=== PATIENT | male | born 1955 | race Caucasian/White ===

== ENCOUNTER 2017-06-11 14:21 | Emergency (ER) | payer MEDICAID, SELFPAY ==
[~2017-06-11 14:21] MED LIST: ISOVUE-370 76%-LOCM 1 ML ONE
--- NOTE | 2017-06-11 15:11 | RAD ---
TWO VIEWS CHEST: Date: 06-11-17 Provided Clinical History: Cough. FINDINGS: Comparison 04-08-14 Cardiac and mediastinal silhouette are within normal limits. Bilateral nipple shadows are again seen. No focal consolidation, pleural fluid or pneumothorax apparent. IMPRESSION: No evidence for an acute cardiopulmonary process. POS: [facility]
[2017-06-11 15:12] LABS: #Basophils 0.1 thou/uL (0.0-0.2); #Eosinphils 0.2 thou/uL (0.0-0.7); #Lymphocytes 2.9 thou/uL (1.20-3.40); #Monocytes 0.6 thou/uL (0.11-0.59); #Neutrophils 3.9 thou/uL (1.40-6.50); %Basophils 0.7 % (0.0-1.0); %Eosinophils 2.6 % (0.0-10.0); %Lymphocytes 37.3 % (21.0-51.0); %Monocytes 8.3 % (0.0-10.0); Hemoglobin 17.5 g/dL (14.0-18.0); Mean Corpuscular HGB CONC 33.7 g/dL (32.0-36.0); Mean Corpuscular Hemoglobin 33.1 pg (27.0-31.0); Mean Corpuscular Volume 98.3 fl (80.0-94.0); Mean Platelet Volume 8.3 fL (7.4-10.4); Platelet Count 184 thou/uL (130-400); RBC Distribution Width 11.9 % (11.5-14.5); Red Blood Cell (RBC) Count 5.27 mill/uL (4.70-6.10); White Blood Cell (WBC) Count 7.7 thou/uL (4.8-10.8)
[2017-06-11 15:26] LABS: ALT (SGPT) 30 U/L (8-55); AST (SGOT) 19 U/L (5-34); Albumin 4.3 g/dL (3.5-5.0); Alkaline Phosphatase 58 U/L (40-150); Anion Gap 12 mmol/L (10-20); BUN (Urea Nitrogen) 12 mg/dL (8.4-25.7); Bilirubin, Total 0.5 mg/dL (0.2-1.2); Calc. Creatinine Clearance 0 mL/min (70-130); Calcium 9.7 mg/dL (7.8-10.44); Carbon Dioxide 28 mmol/L (22-29); Chloride 105 mmol/L (98-107); Estimated GFR-MDRD 90; Globulin 3.2 g/dL (2.4-3.5); Glucose 82 mg/dL (70-105); Potassium 4.2 mmol/L (3.5-5.1); Protein, Total 7.5 g/dL (6.0-8.3); Sodium 141 mmol/L (136-145)
[2017-06-11 17:48] LABS: Prothrombin Time 12.8 SEC (12.0-14.7)
[2017-06-11] MEDS ORDERED: Fentanyl 100 MCG/2 ML VIAL ONE (18:05)
[2017-06-11 18:06] LABS: CKMB 1.7 ng/mL (0-6.6); Troponin I Less than 0.010 ng/mL (< 0.028)
--- NOTE | 2017-06-11 20:09 | ULT ---
RIGHT UPPER QUADRANT ULTRASOUND 06/11/17 COMPARISON: None. HISTORY: Abdominal pain. TECHNIQUE: Multiplanar samayoa scale sonographic imaging of the right upper quadrant obtained. FINDINGS: The pancreas is nonvisualized secondary to bowel gas. The director of music therapy reports a negative Weller's sig n. The hepatic parenchyma is heterogeneous and echogenic, which may signify hepatocellular disease, such as hepatic steatosis. The common bile duct measures 4 mm, within normal limits. NO pericholecystic f luid, gallbladder wall thickening, or gallstones noted. The right kidney measures 11.5 cm in craniocaudal dimension. There is a hypoechoic lesion emanating f rom the mid pole of the right kidney measuring the 2.0 x 1.7 x 1.9 cm range, which is likely cystic i n nature. It is mildly complex with subtle internal echogenicity. IMPRESSION: 1. Increased echogenicity of the hepatic parenchyma suggests steatosis. 2. No evidence for cholelithiasis, cholecystitis, or biliary dilatation. 3. Hypoechoic lesion emanating from the right kidney. This likely represents a cyst, possibly m ildly complex for which followup renal ultrasound on a nonemergent basis is advised. POS: [facility]
[2017-06-11 20:43] LABS: Bilirubin Negative (Negative); Blood, Urine Negative (Negative); Clarity CLEAR (Clear); Glucose, Urine (Dipstick) Negative (Negative); Leukocyte Negative (Negative); Nitrite Negative (Negative); Protein, Urine (Dipstick) Trace mg/dL (Neg-Trace); Specific Gravity, Urine 1.025 (1.002-1.036); Urobilinogen 0.2 mg/dL (0.2-1.0)
--- NOTE | 2017-06-11 20:58 | CT ---
ABDOMEN AND PELVIC CT SCAN WITH IV CONTRAST: 06/11/17 HISTORY: 62-year-old male with right upper quadrant abdominal pain for several days. The lung bases are clear. The visualized liver, gallbladder, pancreas, spleen, adrenal glands are unr emarkable. Multiple bilateral renal cysts are noted, stable from 04/08/14 noncontrast study. Slight a neurysmal dilatation of the infrarenal abdominal aorta up to 2.7 cm in AP dimension, stable. Fat cont aining umbilical hernia. Normal appearing appendix. No evidence of bowel obstruction. No abscess, mikie nopathy, or abnormal fluid collection within the abdomen or pelvis. Fat containing right inguinal her shae. Very large, approximately 7.3 cm diameter fluid collection in the right scrotum which appears to be a very large hydrocele. IMPRESSION: Stable bilateral renal cyst. Very large right sided hydrocele. Fat containing right inguinal and umbi lical hernias. Normal appearing appendix. Other findings as above. POS: [facility]
[2017-06-11] MEDS ORDERED: Ketorolac Tromethamine 30 MG/ML VIAL ONE ×2 (21:34→21:35)
--- NOTE | 2017-07-25 14:21 | EKG ---
Test Reason : Blood Pressure : / mmHG Vent. Rate : 056 BPM Atrial Rate : 056 BPM P-R Int : 176 ms QRS Dur : 108 ms QT Int : 430 ms P-R-T Axes : 074 -06 037 degrees QTc Int : 414 ms Sinus bradycardia with sinus arrhythmia Septal infarct , age undetermined Abnormal ECG Confirmed by ZEYNEP Abbott, МАРИЯ ([id number]), field map editor RONEN FONG ([id number]) on 07/25/2017 2:20:47 PM Referred By: ZEYNEP Confirmed By:МАРИЯ ADHIKARI M.D.
== END 2017-06-11 22:26 | disposition home or self-care (01) ==
LOC: ERS 14:21
DX: K40.90 Unilateral inguinal hernia, without obstruction or gangrene, not specified as recurrent (principal); K42.9 Umbilical hernia without obstruction or gangrene; N43.3 Hydrocele, unspecified; N28.1 Cyst of kidney, acquired; E03.9 Hypothyroidism, unspecified; I10 Essential (primary) hypertension; F17.210 Nicotine dependence, cigarettes, uncomplicated
CPT/HCPCS: 36415; 71046; 74177; 76705; 80053; 81003; 82553; 83605; 83690; 84484; 85025; 85610; 93005; 96361; 96374; 96375; J1885; J2270; J3010

== ENCOUNTER 2017-09-10 11:01 | Outpatient (CLI) | payer OTHER | END 2017-09-10 11:02 | disposition home or self-care (01) | LOC: BICRAD 11:01 | PROVIDERS: ATTEND Internal Medicine | DX: Z02.71 Encounter for disability determination (principal); Z98.890 Other specified postprocedural states ==

== ENCOUNTER 2018-03-17 09:43 | Outpatient (CLI) | payer OTHER ==
[2018-03-17 11:16] LABS: #Eosinphils 0.2 thou/uL (0.0-0.7); #Lymphocytes 3.2 thou/uL (1.20-3.40); #Monocytes 0.8 thou/uL (0.11-0.59); #Neutrophils 4.5 thou/uL (1.40-6.50); %Basophils 0.4 % (0.0-1.0); %Eosinophils 2.4 % (0.0-10.0); %Lymphocytes 36.5 % (21.0-51.0); %Monocytes 8.8 % (0.0-10.0); Hemoglobin 17.5 g/dL (14.0-18.0); Mean Corpuscular HGB CONC 33.3 g/dL (32.0-36.0); Mean Corpuscular Hemoglobin 32.2 pg (27.0-31.0); Mean Corpuscular Volume 96.8 fL (78.0-98.0); Mean Platelet Volume 8.9 fL (7.4-10.4); Platelet Count 205 thou/uL (130-400); RBC Distribution Width 11.5 % (11.5-14.5); Red Blood Cell (RBC) Count 5.44 mill/uL (4.70-6.10); White Blood Cell (WBC) Count 8.7 thou/uL (4.8-10.8)
[2018-03-17 11:27] LABS: Anion Gap 13 mmol/L (10-20); BUN (Urea Nitrogen) 19 mg/dL (8.4-25.7); Calc. Creatinine Clearance 0 mL/min (70-130); Calcium 9.1 mg/dL (7.8-10.44); Carbon Dioxide 24 mmol/L (22-29); Chloride 104 mmol/L (98-107); Estimated GFR-MDRD 90; Glucose 108 mg/dL (70-105); Potassium 3.9 mmol/L (3.5-5.1); Sodium 137 mmol/L (136-145)
[2018-03-17 11:57] LABS: Bilirubin Negative (Negative); Blood, Urine Negative (Negative); Clarity CLEAR (Clear); Glucose, Urine (Dipstick) Negative (Negative); Leukocyte Negative (Negative); Nitrite Negative (Negative); Protein, Urine (Dipstick) Negative (Neg-Trace); Specific Gravity, Urine 1.009 (1.002-1.036); Urobilinogen 0.2 mg/dL (0.2-1.0)
[2018-03-17 12:00] LABS: Bacteria/HPF None Seen HPF (None Seen); Hyaline Casts/LPF 0-3 HYALINE CAST LPF (0-3 Hyaline); RBC/HPF 0-3 HPF (0-3); Squamous Epithelial None Seen HPF (0-3); WBC/HPF None Seen HPF (0-3)
--- NOTE | 2018-03-17 12:50 | EKG ---
Test Reason : Blood Pressure : / mmHG Vent. Rate : 065 BPM Atrial Rate : 065 BPM P-R Int : 170 ms QRS Dur : 112 ms QT Int : 422 ms P-R-T Axes : 074 000 034 degrees QTc Int : 438 ms Normal sinus rhythm possible septal infarct unknown age When compared with ECG of 11-JUN-2017 18:27,no significant change Confirmed by DR. Kip BOYKIN ([id number]) on 03/17/2018 12:49:49 PM Referred By: SAADIA Confirmed By:DR. Kip BOYKIN
== END 2018-03-17 09:44 | disposition home or self-care (01) ==
LOC: LABBT 09:43
PROVIDERS: ATTEND Urology
DX: Z01.818 Encounter for other preprocedural examination (principal); N43.3 Hydrocele, unspecified; K40.90 Unilateral inguinal hernia, without obstruction or gangrene, not specified as recurrent; K42.9 Umbilical hernia without obstruction or gangrene
CPT/HCPCS: 80048; 81001; 85025; 87086; 93005; 93010

== ENCOUNTER 2018-03-25 06:58 | Day surgery (SDC) | payer OTHER ==
[2018-03-17 09:55] VITALS: BMI 34.2
[2018-03-25] MEDS ORDERED: Ketorolac Tromethamine 30 MG/ML VIAL ONE (07:28)
[2018-03-25] MEDS ORDERED: CEFAZOLIN 2 GM/50 ML BAG ONE (07:29)
[2018-03-25] MEDS ORDERED: Fentanyl 100 MCG/2 ML VIAL ONE ×2 (09:05)
[2018-03-25] MEDS ORDERED: Bupivacaine/Epinephrine 0.25% 30 ML VIAL ONE (09:14)
[2018-03-25] MEDS ORDERED: Bupivacaine 0.25% HCL 30 ML VIAL ONE (09:14)
--- NOTE | 2018-03-25 12:26 | OP ---
DATE OF PROCEDURE: 03/25/2018 SERVICE: Urology. SURGEON: Blair Roth M.D. PREOPERATIVE DIAGNOSIS: Right hydrocele. POSTOPERATIVE DIAGNOSIS: Right noncommunicating hydrocele. PROCEDURE PERFORMED: Right hydrocelectomy in Jaboulay fashion. INDICATIONS FOR PROCEDURE: Mr. James is a 62-year-old white male who initially had presented to me for right hydrocele. I had found that he also had an inguinal hernia and umbilical hernia which h e desired to be fixed. I have sent him to Dr. Molina to evaluate him for an inguinal hernia repair and umbilical hernia repair and we plan to do a concurrent hydrocelectomy at the same time. Risks an d benefits of the surgery were discussed with both surgeons and he has agreed to proceed forward. DESCRIPTION OF PROCEDURE: At the time of my arrival to the operating room, patient had already been asleep and was completing his inguinal hernia repair and umbilical hernia repair with Dr. Molina. T he patient was reprepped in the genital region in a supine position in the usual sterile fashion. Af ter another timeout for my portion of the procedure, an incision was made along the right hemiscrotum over the hydrocele with the 15 blade. Dissection was carried down through the dartos and spermatic fascia until the hydrocele sac could be identified using Metzenbaum scissors and blunt dissection, th e hydrocele was freed up from the surrounding tissues. The hydrocele was then delivered outside the scrotum and the surrounding tissues peeled back either with blunt dissection or cautery until the spe rmatic cord was identified leading into the hydrocele. An incision was made on the anterior surface of the hydrocele which released straw colored fluid, approximately 400 mL. Inspection within the hyd rocele sac demonstrated a normal testicle. No masses or any other concerning findings. The hydrocel e sac was opened cephalad and then caudally until the entire hydrocele sac was opened. There was an appendix testis, which was removed off the testicle. The testicle was otherwise smooth and normal wi thout any defects or problems. The hydrocele was excised using Bovie electrocautery keeping a margin to allow for a Jaboulay type repair and taking care to avoid structures to the spermatic cord, epidi dymis and testicle. The hydrocele sac was then submitted for routine pathologic evaluation. Hemosta sis was performed with cautery and then the hydrocele sac was everted behind the testicle using a 3-0 Vicryl in a running fashion, taking care to avoid any sutures to the epididymis or cord structures. Upon completion, the testicle was inspected. There appeared to be no bleeding. The scrotal sac had no bleeding. A small incision was made using the Bovie electrocautery on inferior pole of the scrot um using the cutting current. A hemostat was used to pass a Geovanni drain through. The superior asp ect of the Geovanni drain was gently anchored using a very small amount of tissue through the spermati c fascias and through the Geovanni drain to avoid accidental removal. The [place] was then sutured on the outside using a 3-0 nylon. The testicle was then irrigated and the extra fluid suctioned out. A cord block was performed with 0.25% Marcaine plain and the testicle positioned back into the scrotu m. The dartos and spermatic fascias were closed using a 2-0 Vicryl in a running fashion. Marcaine w as again used on the incision and then the skin closed with a 4-0 Monocryl in a running fashion. Andrez mabond was applied and once dried, scrotal fluffs and a jockstrap were applied. The patient was then awakened and taken to PACU for recovery in stable condition. COMPLICATIONS: None. ESTIMATED BLOOD LOSS: Minimal. RETAINED TUBES AND DRAINS: A quarter inch [place] drain. SPECIMENS: Tunica vaginalis. DISPOSITION: The patient will be discharged home. He will have followup appointments with both Dr. Molina and myself.
--- NOTE | 2018-03-25 13:05 | OP ---
DATE OF PROCEDURE: 03/25/2018 PREOPERATIVE DIAGNOSES: Right inguinal hernia, umbilical hernia, right hydrocele. POSTOPERATIVE DIAGNOSES: Right inguinal hernia, umbilical hernia, right hydrocele. OPERATION PERFORMED: Robotic-assisted right inguinal hernia repair (indirect, with large cord lipoma ), repair of umbilical hernia with mesh. SURGEON: Fabrizio Molina M.D. ANESTHESIA: General endotracheal. INDICATIONS: The patient is a 62-year-old obese white male. He presented with a large symptomatic r ight hydrocele. CT scan was obtained revealing evidence of a fat containing right inguinal hernia as well as an easily visible umbilical hernia. He is taken to the operating room at this time for repa ir of these two hernias. Dr. Roth, under the same anesthetic, is planning to proceed to perform a hydrocelectomy. OPERATIVE PROCEDURE IN DETAIL: Informed consent was obtained. The patient was taken to the operatin g room where general endotracheal anesthesia obtained with the patient in supine position. A Zuluaga c atheter was placed, abdomen was prepped with ChloraPrep and draped in sterile fashion. He was placed in fairly steep Trendelenburg position. Local anesthetic was infiltrated using 0.25% Marcaine with epinephrine. Supraumbilical incision was created, dissection was carried through skin and subcutaneo us tissue. The umbilical hernia was reducible. I dissected down to the hernia sac and passed the Ve ress needle through this. Pneumoperitoneum was established using carbon dioxide to a pressure of 15 mmHg. A 12 mm trocar port was then passed through the same umbilical defect. The robotic camera was placed and under direct vision, I placed 2 additional 8 mm robotic ports on either side of midline. Attention was turned inferiorly. There was no evidence of a left inguinal hernia. There is an easil y visible right inguinal hernia. The operation was continued from the robotic console. A transverse peritoneal incision was created s everal centimeters superior to the hernia. Dissection was carried preperitoneal inferiorly down to t he pubic tubercle medially and the iliopubic tract laterally. I then turned my attention to the sper matic cord. This was a large fat containing structure. This was dissected and a large cord lipoma w as extracted and reduced. There was no evidence of other indirect hernia. There was a large defect at this point. The peritoneum was widely dissected off the underlying structures and the cord struct ures. A large 3DMax mesh patch was obtained and placed within the preperitoneal space and secured in place with 3 interrupted sutures of 2-0 Vicryl. The reduced lipoma was pulled superior to ensure th at it would not slip under the mesh patch. The peritoneum was closed with a running suture of 3-0 Stratafix, incorporating the previously hernia gabrielle preperitoneal fatty tissue. The lateral ports were removed under direct vision. Attention was turned to the umbilicus. The umbi lical incision was extended. Dissection was carried down to the hernia. The umbilicus was reflected superiorly. The fascia was dissected anteriorly and posteriorly. A 4.3 cm Ventralex mesh patch was obtained and placed in the preperitoneal space. The tails were secured to the anterior fascia super iorly and inferiorly with single interrupted sutures of 0 Prolene. Lateral aspects of the defect wer e closed with single interrupted sutures of 0 Prolene, incorporating bites of the anterior leaflet of the mesh patch. The umbilicus was then secured down to the fascia with 2 interrupted sutures of 3-0 Vicryl. The remainder of the wound was closed in layers with 3-0 and 4-0 Monocryl. Additional loca l anesthetic was infiltrated. Dermabond was placed externally. A compression dressing was affected of cotton balls and a Tegaderm that was held in place with Mastisol. The air was aspirated out of th e cotton balls. The two lateral ports were each closed with 4-0 Monocryl subcuticular suture and Dermabond was placed externally. There were no complications. The patient tolerated the procedure well and was in stabl e condition. Dr. Roth presented at the completion of my operation to proceed with the hydrocele o peration.
[2018-03-25] MEDS ORDERED: Glycopyrrolate 0.2 MG/ML 5 ML SYRINGE ONE (13:25)
[2018-03-25] MEDS ORDERED: Dexamethasone 20 MG/5 ML VIAL ONE (13:25)
[2018-03-25] MEDS ORDERED: Lidocaine 1% PF 5 ML VIAL ONE (13:25)
[2018-03-25] MEDS ORDERED: ePHEDrine/0.9% NaCl/PF SYRINGE 50 mg/10 ml ONE (13:25)
[2018-03-25] MEDS ORDERED: Metoclopramide HCl 10 MG/2 ML VIAL ONE (13:25)
[2018-03-25] MEDS ORDERED: PHENYLEPHRINE-NS 100 MCG/ML 10 ML SYRINGE ONE (13:25)
[2018-03-25] MEDS ORDERED: Ondansetron PF 4 MG/2 ML Vial ONE (13:25)
[2018-03-25] MEDS ORDERED: PROPOFOL 200 MG/20 ML VIAL ONE (13:25)
[2018-03-25] MEDS ORDERED: HYDROcodone/Acetaminophen 5/325 mg Tablet ONE (14:09)
== END 2018-03-25 14:17 | disposition home or self-care (01) ==
LOC: SDC 06:58
PROVIDERS: ATTEND Urology
PROC: 0WUF0JZ Supplement Abdominal Wall with Synthetic Substitute, Open Approach (ICD-10-PCS; principal; 2018-03-25)
PROC: 0YU54JZ Supplement Right Inguinal Region with Synthetic Substitute, Percutaneous Endoscopic Approach (ICD-10-PCS; principal; 2018-03-25)
PROC: 0VB60ZZ Excision of Right Tunica Vaginalis, Open Approach (ICD-10-PCS; 2018-03-25)
DX: K40.90 Unilateral inguinal hernia, without obstruction or gangrene, not specified as recurrent (principal); K42.9 Umbilical hernia without obstruction or gangrene; N43.3 Hydrocele, unspecified; D17.6 Benign lipomatous neoplasm of spermatic cord; Q55.29 Other congenital malformations of testis and scrotum; Z79.899 Other long term (current) drug therapy
CPT/HCPCS: 88302; C1781; J0131; J1100; J1885; J2001; J2405; J2704; J2765; J3010; S0020

== ENCOUNTER 2018-08-02 06:58 | Emergency (ER) | payer OTHER ==
[2018-08-02] MEDS ORDERED: Diazepam 5 MG TAB ONE (08:09)
[2018-08-02] MEDS ORDERED: HYDROcodone/Acetaminophen 5/325 mg Tablet ONE (08:09)
== END 2018-08-02 08:15 | disposition home or self-care (01) ==
LOC: ERS 06:58
DX: M62.830 Muscle spasm of back (principal); E78.5 Hyperlipidemia, unspecified; J44.9 Chronic obstructive pulmonary disease, unspecified; E03.9 Hypothyroidism, unspecified; I10 Essential (primary) hypertension; F17.210 Nicotine dependence, cigarettes, uncomplicated; Z79.899 Other long term (current) drug therapy
CPT/HCPCS: 99283

== ENCOUNTER 2019-02-10 09:59 | Emergency (ER) | payer OTHER | END 2019-02-10 11:09 | disposition home or self-care (01) | LOC: ERS 09:59 | DX: M54.5 Low back pain (principal); E78.5 Hyperlipidemia, unspecified; J44.9 Chronic obstructive pulmonary disease, unspecified; I10 Essential (primary) hypertension; E03.9 Hypothyroidism, unspecified; F17.210 Nicotine dependence, cigarettes, uncomplicated; Z79.899 Other long term (current) drug therapy; Z79.51 Long term (current) use of inhaled steroids | CPT/HCPCS: 99283 ==

== ENCOUNTER 2019-02-16 09:46 | Outpatient (CLI) | payer OTHER ==
--- NOTE | 2019-02-16 11:19 | RAD ---
LUMBAR SPINE SERIES 4 VIEWS WITH OBLIQUES: Date: 02/16/19 HISTORY: Acute low back pain x2 weeks. FINDINGS: The vertebral bodies are normal in height. Degenerative osteophytes are seen without significant disc narrowing. There are degenerative facet changes. No spondylolisthesis. IMPRESSION: Mild arthritic changes of the spine. POS: [facility]
== END 2019-02-16 09:47 | disposition home or self-care (01) ==
LOC: BICRAD 09:46
PROVIDERS: ATTEND Internal Medicine
DX: M54.5 Low back pain (principal); M46.96 Unspecified inflammatory spondylopathy, lumbar region
CPT/HCPCS: 72110

== ENCOUNTER 2019-05-20 13:26 | Emergency (ER) | payer OTHER | END 2019-05-20 14:34 | disposition home or self-care (01) | LOC: ERS 13:26 | DX: M54.5 Low back pain (principal); E78.5 Hyperlipidemia, unspecified; E03.9 Hypothyroidism, unspecified; F17.210 Nicotine dependence, cigarettes, uncomplicated; Z79.899 Other long term (current) drug therapy; I10 Essential (primary) hypertension | CPT/HCPCS: 99283 ==

== ENCOUNTER 2019-05-24 07:55 | Emergency (ER) | payer OTHER ==
[2019-05-24] MEDS ORDERED: Ketorolac Tromethamine 60 MG/2 ML VIAL ONE (08:29)
[2019-05-24 08:57] LABS: Bilirubin Negative (Negative); Blood, Urine Negative (Negative); Clarity Turbid (Clear); Glucose, Urine (Dipstick) Normal (Negative); Leukocyte Negative Leu/uL (Negative); Nitrite Negative (Negative); Protein, Urine (Dipstick) 70 mg/dL (Neg-Trace); Squamous Epithelial 0-3 HPF (0-3); Urobilinogen 3 mg/dL (Less than 2); WBC/HPF 0-3 HPF (0-3)
[2019-05-24 08:59] LABS: Sperm/HPF 4+ HPF (None Seen)
[2019-05-24 09:08] LABS: Bacteria/HPF 2+ HPF (None Seen)
[2019-05-24 09:09] LABS: Calcium Oxalate Crystals Rare HPF (None Seen)
[2019-05-24 10:35] LABS: Amphetamine Not Detected (NotDetected); Barbiturates Screen Not Detected (NotDetected); Benzodiazepine Screen Not Detected (NotDetected); Cocaine Metabolite Screen Not Detected (NotDetected); Medtox Control Line Valid? VALID (VALID); Medtox Reader # READER 1; Methadone Not Detected (NotDetected); Methamphetamine Not Detected (NotDetected); Opiate Screen Not Detected (NotDetected); Oxycodone Screen Not Detected (NotDetected); Phencyclidine (PCP) Not Detected (NotDetected); THC/Cannabinoid Screen Not Detected (NotDetected); Tricyclic Screen Detected (NotDetected)
== END 2019-05-24 09:45 | disposition home or self-care (01) ==
LOC: ERS 07:55
DX: M54.5 Low back pain (principal); E78.5 Hyperlipidemia, unspecified; J44.9 Chronic obstructive pulmonary disease, unspecified; E03.9 Hypothyroidism, unspecified; I10 Essential (primary) hypertension; F17.210 Nicotine dependence, cigarettes, uncomplicated; Z79.899 Other long term (current) drug therapy; Z79.51 Long term (current) use of inhaled steroids
CPT/HCPCS: 80306; 81003; 81015; 96372; 99283; J1885

== ENCOUNTER 2020-08-03 00:38 | Emergency (ER) | payer OTHER, SELFPAY ==
[2020-08-03] MEDS ORDERED: Hydrochlorothiazide 25 MG TAB PO SCH (01:30)
[2020-08-03] MEDS ORDERED: Lisinopril 10 MG TAB ONE (01:31)
== END 2020-08-03 02:50 ==
LOC: ERS 00:38
DX: K04.01 Reversible pulpitis (principal); M54.5 Low back pain; I10 Essential (primary) hypertension; E78.5 Hyperlipidemia, unspecified; J44.9 Chronic obstructive pulmonary disease, unspecified; E03.9 Hypothyroidism, unspecified; Z87.891 Personal history of nicotine dependence; Z79.899 Other long term (current) drug therapy
CPT/HCPCS: 99283

== ENCOUNTER 2022-02-02 08:25 | Emergency (ER) | payer SELFPAY ==
[2022-02-02 08:54] LABS: #Basophils 0.1 thou/uL (0.0-0.2); #Eosinphils 0.2 thou/uL (0.0-0.7); #Lymphocytes 2.8 thou/uL (1.20-3.40); #Monocytes 0.6 thou/uL (0.11-0.59); %Basophils 1.2 % (0.0-1.0); %Eosinophils 2.6 % (0.0-10.0); %Lymphocytes 36.6 % (21.0-51.0); %Monocytes 7.4 % (0.0-10.0); %Neutrophils 52.2 % (42.0-75.0); Hemoglobin 17.6 g/dL (14.0-18.0); Mean Corpuscular HGB CONC 32.6 g/dL (32.0-36.0); Mean Corpuscular Hemoglobin 33.1 pg (27.0-31.0); Mean Platelet Volume 8.7 fL (7.4-10.4); Platelet Count 177 thou/uL (130-400); RBC Distribution Width 12.2 % (11.5-14.5); Red Blood Cell (RBC) Count 5.31 mill/uL (4.70-6.10); White Blood Cell (WBC) Count 7.6 thou/uL (4.8-10.8)
[2022-02-02] MEDS ORDERED: Ketorolac Tromethamine 30 MG/ML VIAL ONE (09:04)
[2022-02-02] MEDS ORDERED: Clindamycin/D5W 900 mg/50 ml Premix Bag ONE (09:05)
[2022-02-02 09:15] LABS: ALT (SGPT) 16 U/L (8-55); AST (SGOT) 18 U/L (5-34); Albumin 4.4 g/dL (3.4-4.8); Alkaline Phosphatase 54 U/L (40-110); Anion Gap 13 mmol/L (10-20); BUN (Urea Nitrogen) 11 mg/dL (8.4-25.7); Bilirubin, Total 0.6 mg/dL (0.2-1.2); Calc. Creatinine Clearance 0 mL/min (70-130); Calcium 9.1 mg/dL (7.8-10.44); Carbon Dioxide 31 mmol/L (23-31); Chloride 102 mmol/L (98-107); Estimated GFR 84; Glucose 142 mg/dL (80-115); Potassium 4.5 mmol/L (3.5-5.1); Protein, Total 7.4 g/dL (5.8-8.1); Sodium 141 mmol/L (136-145)
== END 2022-02-02 11:20 | disposition home or self-care (01) ==
LOC: ERS 08:25
DX: S82.831A Other fracture of upper and lower end of right fibula, initial encounter for closed fracture (principal); L03.115 Cellulitis of right lower limb; I10 Essential (primary) hypertension; J44.9 Chronic obstructive pulmonary disease, unspecified; E78.5 Hyperlipidemia, unspecified; E03.9 Hypothyroidism, unspecified; Z79.899 Other long term (current) drug therapy; W01.0XXA Fall on same level from slipping, tripping and stumbling without subsequent striking against object, initial encounter
CPT/HCPCS: 29515; 80053; 85025; 96365; 96375; J1885; J3490